=== PATIENT | female | born 1965 | race American Indian/Alaskan Native ===

== ENCOUNTER 2019-07-28 10:56 | Emergency (ER) | payer BC ==
[2019-07-28 11:44] VITALS: BP 146/77
[2019-07-28] MEDS ORDERED: ASPIRIN 325 MG TAB PO ONE ×2 (11:46→11:56)
--- NOTE | 2019-07-28 12:17 | Emergency Department Report ---
ED Chest Pain HPI - General Chief Complaint: Chest Pain Stated Complaint: CHEST PAIN Time Seen by Provider: 07/28/19 11:39 Source: patient, EMS Mode of arrival: Stretcher Limitations: No Limitations - History of Present Illness Initial Comments: Ms. Pollock is a very pleasant 53-year-old female with history of diabetes mellitus, hypertension, dyslipidemia who presents with sudden onset of chest pain while shopping. She arrived via EMS.She had sharp throbbing 10/10 pain radiating to the throat. She's had these symptoms for several years. Now more frequently. She received relief after aspirin and nitroglycerin provided by EMS. She states that the episodes can happen any time at rest at home or work. She was concerned about gas potentially causing the pain. She is also concerned about potential anxiety as a cause. She states that she has not been under any stress. She has made her PCP aware of the chest pain. Now she has chest tenderness. Pain is worse when she moves. chest is tender to touch. There is a family history of diabetes mellitus and heart disease. She has not had a cardiac evaluation as of yet. MD Complaint: chest pain -: Sudden, This afternoon Onset: during rest Pain Location: substernal Pain Radiation: jaw/teeth Severity: severe Severity scale (0 -10): 0 (pain is now 0 out of 10, initial pain 10 on a 10) Quality: sharp, other (throbbing) Consistency: now resolved Improves With: nitroglycerin, other (aspirin) Worsens With: nothing re: dyspnea Treatments Prior to Arrival: aspirin, nitroglycerin - Related Data Home Medications Medication Instructions Recorded Confirmed Last Taken Acetaminophen/Codeine [Tylenol #3] 1 tab PO Q8H PRN 08/18/13 08/18/13 08/18/13 08:45 Omeprazole 40 mg PO DAILY 07/28/19 07/28/19 07/28/19 Previous Rx's Medication Instructions Recorded Last Taken Type Ibuprofen [Motrin 800 MG tab] 800 mg PO Q8HR PRN #30 tablet 05/17/16 Unknown Rx Gabapentin [Neurontin] 300 mg PO Q8HR #90 capsule 06/17/16 Unknown Rx lisinopriL [Zestril TAB] 20 mg PO QDAY #30 tablet 06/17/16 07/28/19 Rx metFORMIN [Glucophage] 500 mg PO BID #60 tablet 06/17/16 07/28/19 Rx Allergies Allergy/AdvReac Type Severity Reaction Status Date / Time buspirone HCl [From BuSpar] AdvReac Unknown Verified 08/18/13 15:59 Penicillins AdvReac Rash Verified 08/18/13 15:59 Heart Score - HEART Score History: Slightly suspicious EKG: Normal Age: 45-65 Risk factors: > 3 risk factors or hx of atherosclerotic disease Troponin: < normal limit HEART Score: 3 ED Review of Systems ROS: Stated complaint: CHEST PAIN Other details as noted in HPI Comment: All other systems reviewed and negative Constitutional: denies: fever, malaise Respiratory: shortness of breath. denies: cough Cardiovascular: chest pain ED Past Medical Hx - Past Medical History Previous Medical History?: Yes Hx Hypertension: Yes Hx Diabetes: Yes Hx GERD: Yes Additional medical history: high cholesterol - Surgical History Past Surgical History?: Yes Additional Surgical History: x 2. lap. surg x 2. 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 - Medications Home Medications: Home Medications Medication Instructions Recorded Confirmed Last Taken Type Acetaminophen/Codeine [Tylenol #3] 1 tab PO Q8H PRN 08/18/13 08/18/13 08/18/13 08:45 History Ibuprofen [Motrin 800 MG tab] 800 mg PO Q8HR PRN #30 tablet 05/17/16 Unknown Rx Gabapentin [Neurontin] 300 mg PO Q8HR #90 capsule 06/17/16 Unknown Rx lisinopriL [Zestril TAB] 20 mg PO QDAY #30 tablet 06/17/16 07/28/19 07/28/19 Rx metFORMIN [Glucophage] 500 mg PO BID #60 tablet 06/17/16 07/28/19 07/28/19 Rx Omeprazole 40 mg PO DAILY 07/28/19 07/28/19 07/28/19 History ED Physical Exam - General Limitations: No Limitations General appearance: alert, in no apparent distress - Head Head exam: Present: atraumatic, normocephalic - Eye Eye exam: Present: normal appearance - ENT ENT exam: Present: mucous membranes moist - Neck Neck exam: Present: normal inspection, full ROM. Absent: tenderness, meningismus - Respiratory Respiratory exam: Present: normal lung sounds bilaterally. Absent: respiratory distress, wheezes, rales, rhonchi - Cardiovascular Cardiovascular Exam: Present: regular rate, normal rhythm, normal heart sounds, other (equal radial pulses). Absent: systolic murmur, diastolic murmur, rubs, gallop - GI/Abdominal GI/Abdominal exam: Present: soft, normal bowel sounds. Absent: distended, tenderness, guarding, rebound - Extremities Exam Extremities exam: Present: normal inspection - Neurological Exam Neurological exam: Present: alert, oriented X3 - Psychiatric Psychiatric exam: Present: normal affect, normal mood - Skin Skin exam: Present: warm, dry, intact, normal color. Absent: rash ED Course Vital Signs 07/28/19 07/28/19 11:38 11:44 Temperature 97.8 F Pulse Rate 65 Respiratory 17 17 Rate Blood Pressure 146/77 O2 Sat by Pulse 95 Oximetry ED Medical Decision Making - Lab Data Result diagrams: 07/28/19 12:08 07/28/19 12:08 - Medical Decision Making Ms. Pollock presents with recurrent chest pain worse over the last several days most severe today. Differential diagnosis includes ACS. I do not suspect pulmonary embolism, pericarditis, aortic dissection or alternative emergent diagnoses. Heart Score 3. Referred has been made to [facility] for outpatient cardiac w/u Troponin negative. dc'd home with return precautions Critical care attestation.: If time is entered above; I have spent that time in minutes in the direct care of this critically ill patient, excluding procedure time. ED Disposition Clinical Impression: Chest pain Disposition: DC-01 TO HOME OR SELFCARE Is pt being admited?: No Does the pt Need Aspirin: No Condition: Stable Instructions: Chest Pain (ED) Referrals: LIVIER AGUILERA MD [Staff Physician] - 3-5 Days
--- NOTE | 2019-07-28 12:26 | XRay Report ---
CHEST 1 VIEW 11:58 AM INDICATION / CLINICAL INFORMATION: Chest Pain. COMPARISON: None available. FINDINGS: SUPPORT DEVICES: None. HEART / MEDIASTINUM: The heart size and pulmonary vasculature are normal. The aorta is normal in [place] blade. LUNGS / PLEURA: No significant pulmonary or pleural abnormality. No pneumothorax. ADDITIONAL FINDINGS: No significant additional findings. IMPRESSION: No acute findings. Signer Name: Mich Fuller MD Signed: 07/28/2019 12:21 PM Workstation Name: [id number]
[2019-07-28 12:29] LABS: Basophils # (Auto) 0.1 K/mm3 (0.0-0.1); Basophils % (Auto) 1.3 % (0.0-1.8); Eosinophils # (Auto) 0.1 K/mm3 (0.0-0.4); Hematocrit 39.5 % (30.3-42.9); Hemoglobin 13.1 gm/dl (10.1-14.3); Lymphocytes # (Auto) 2.8 K/mm3 (1.2-5.4); Lymphocytes % (Auto) 35.2 % (13.4-35.0); Mean Corpuscular HGB Conc 33 % (30-34); Mean Corpuscular Volume 83 fl (79-97); Monocytes # (Auto) 0.4 K/mm3 (0.0-0.8); Monocytes % (Auto) 5.6 % (0.0-7.3); Platelet Count 315 K/mm3 (140-440); Red Blood Count 4.73 M/mm3 (3.65-5.03); Red Cell Distribution Width 14.8 % (13.2-15.2)
[2019-07-28 12:48] LABS: BUN/Creatinine Ratio 18; Blood Urea Nitrogen 11 mg/dL (7-17); Calcium 9.6 mg/dL (8.4-10.2)
[2019-07-28 12:49] LABS: Hemolysis Index 16
[2019-07-28] MEDS ORDERED: ASPIRIN 325 MG TAB ONE (14:53)
== END 2019-07-28 17:00 | disposition home or self-care (01) ==
LOC: ED 10:56
DX: R07.89 Other chest pain (principal); I10 Essential (primary) hypertension; E11.9 Type 2 diabetes mellitus without complications; K21.9 Gastro-esophageal reflux disease without esophagitis; E78.00 Pure hypercholesterolemia, unspecified; Z90.710 Acquired absence of both cervix and uterus; Z98.890 Other specified postprocedural states; Z88.8 Allergy status to other drugs, medicaments and biological substances; Z88.0 Allergy status to penicillin; Z79.84 Long term (current) use of oral hypoglycemic drugs
CPT/HCPCS: 36415; 71045; 80048; 82962; 84484; 85025